=== PATIENT | male | born 1945 | race Two or more races ===

== ENCOUNTER 2017-09-11 09:55 | Day surgery (SDC) | payer MEDICARE, OTHER ==
[~2017-09-11 09:55] MED LIST: AMOCLA500 PO; Bactrim Ds Tab1 EACH PO; CAPT25 PO; CIPR500 PO; GLIP5 PO; HYDMOR2 PO; HYDR1TAB94 PO; Hydrocodone-Ap1 EA23 PO; LISI20 PO; METF500 PO; METF850 PO; NAPR500 PO; OMEG1CAP30 PO; Percocet 5-3251 EACH PO; RANI150 PO
[2017-10-25] MEDS ORDERED: GABA100 PO (17:01)
[2017-10-25] MEDS ORDERED: Omeprazole20 M1 PO (17:02)
[2017-10-25] MEDS ORDERED: [UNRECOGNIZED DRUG - CODE] TOP (17:03)
[2017-10-29] MEDS ORDERED: Percocet 7.5-31 EACH PO (13:07)
[2017-12-31] MEDS ORDERED: LISI20 PO (10:36)
[2017-12-31] MEDS ORDERED: METF500 PO (10:36)
[2017-12-31] MEDS ORDERED: NAPR500 PO (10:39)
[2018-12-30] MEDS ORDERED: Zantac150 MG PO (13:33)
[2018-12-30] MEDS ORDERED: GLIP5ER (13:34)
[2018-12-30] MEDS ORDERED: Pyridium100 MG PO (13:55)
[2018-12-30] MEDS ORDERED: CEPH500 PO (13:55)
== END 2017-09-11 23:03 | disposition home or self-care (01) ==
LOC: HBO 09:55
DX: Z48.00 Encounter for change or removal of nonsurgical wound dressing (principal); E11.621 Type 2 diabetes mellitus with foot ulcer; L97.524 Non-pressure chronic ulcer of other part of left foot with necrosis of bone; I70.202 Unspecified atherosclerosis of native arteries of extremities, left leg
CPT/HCPCS: 82947; G0277

== ENCOUNTER 2017-09-12 15:58 | Day surgery (SDC) | payer MEDICARE, OTHER ==
[2017-10-25] MEDS ORDERED: GABA100 PO (17:01)
[2017-10-25] MEDS ORDERED: Omeprazole20 M1 PO (17:02)
[2017-10-25] MEDS ORDERED: [UNRECOGNIZED DRUG - CODE] TOP (17:03)
[2017-10-29] MEDS ORDERED: Percocet 7.5-31 EACH PO (13:07)
[2017-12-31] MEDS ORDERED: LISI20 PO (10:36)
[2017-12-31] MEDS ORDERED: METF500 PO (10:36)
[2017-12-31] MEDS ORDERED: NAPR500 PO (10:39)
[2018-12-30] MEDS ORDERED: Zantac150 MG PO (13:33)
[2018-12-30] MEDS ORDERED: GLIP5ER (13:34)
[2018-12-30] MEDS ORDERED: Pyridium100 MG PO (13:55)
[2018-12-30] MEDS ORDERED: CEPH500 PO (13:55)
== END 2017-09-12 22:42 | disposition home or self-care (01) ==
LOC: HBO 15:58
DX: Z48.00 Encounter for change or removal of nonsurgical wound dressing (principal); E11.621 Type 2 diabetes mellitus with foot ulcer; L97.524 Non-pressure chronic ulcer of other part of left foot with necrosis of bone; I70.202 Unspecified atherosclerosis of native arteries of extremities, left leg
CPT/HCPCS: 82947; G0277

== ENCOUNTER 2017-10-09 00:47 | Day surgery (SDC) | payer MEDICARE, OTHER ==
[2017-10-25] MEDS ORDERED: GABA100 PO (17:01)
[2017-10-25] MEDS ORDERED: Omeprazole20 M1 PO (17:02)
[2017-10-25] MEDS ORDERED: [UNRECOGNIZED DRUG - CODE] TOP (17:03)
[2017-10-29] MEDS ORDERED: Percocet 7.5-31 EACH PO (13:07)
[2017-12-31] MEDS ORDERED: LISI20 PO (10:36)
[2017-12-31] MEDS ORDERED: METF500 PO (10:36)
[2017-12-31] MEDS ORDERED: NAPR500 PO (10:39)
== END 2017-10-09 11:24 | disposition home or self-care (01) ==
LOC: ATC 00:47
DX: E11.621 Type 2 diabetes mellitus with foot ulcer (principal); E11.69 Type 2 diabetes mellitus with other specified complication; L97.524 Non-pressure chronic ulcer of other part of left foot with necrosis of bone; I70.202 Unspecified atherosclerosis of native arteries of extremities, left leg; Z89.412 Acquired absence of left great toe; I10 Essential (primary) hypertension; Z87.891 Personal history of nicotine dependence; L08.9 Local infection of the skin and subcutaneous tissue, unspecified
CPT/HCPCS: 99212

== ENCOUNTER 2017-10-11 08:00 | Day surgery (SDC) | payer MEDICARE, OTHER ==
[2017-10-25] MEDS ORDERED: GABA100 PO (17:01)
[2017-10-25] MEDS ORDERED: Omeprazole20 M1 PO (17:02)
[2017-10-25] MEDS ORDERED: [UNRECOGNIZED DRUG - CODE] TOP (17:03)
[2017-10-29] MEDS ORDERED: Percocet 7.5-31 EACH PO (13:07)
[2017-12-31] MEDS ORDERED: METF500 PO (10:36)
[2017-12-31] MEDS ORDERED: LISI20 PO (10:36)
[2017-12-31] MEDS ORDERED: NAPR500 PO (10:39)
== END 2017-10-11 14:29 | disposition home or self-care (01) ==
LOC: HBO 08:00
PROC: 5A05221 Extracorporeal Hyperbaric Oxygenation, Continuous (ICD-10-PCS; principal; 2017-10-11)
DX: Z48.00 Encounter for change or removal of nonsurgical wound dressing (principal); E11.621 Type 2 diabetes mellitus with foot ulcer; L97.524 Non-pressure chronic ulcer of other part of left foot with necrosis of bone; I70.202 Unspecified atherosclerosis of native arteries of extremities, left leg
CPT/HCPCS: 82947; G0277

== ENCOUNTER 2017-10-11 10:40 | Day surgery (SDC) | payer MEDICARE, OTHER ==
[2017-10-25] MEDS ORDERED: GABA100 PO (17:01)
[2017-10-25] MEDS ORDERED: Omeprazole20 M1 PO (17:02)
[2017-10-25] MEDS ORDERED: [UNRECOGNIZED DRUG - CODE] TOP (17:03)
[2017-10-29] MEDS ORDERED: Percocet 7.5-31 EACH PO (13:07)
[2017-12-31] MEDS ORDERED: METF500 PO (10:36)
[2017-12-31] MEDS ORDERED: LISI20 PO (10:36)
[2017-12-31] MEDS ORDERED: NAPR500 PO (10:39)
== END 2017-10-11 14:33 | disposition home or self-care (01) ==
LOC: WOUND 10:40
DX: Z48.00 Encounter for change or removal of nonsurgical wound dressing (principal); E11.621 Type 2 diabetes mellitus with foot ulcer; L97.524 Non-pressure chronic ulcer of other part of left foot with necrosis of bone; I70.202 Unspecified atherosclerosis of native arteries of extremities, left leg
CPT/HCPCS: G0463

== ENCOUNTER 2017-10-15 00:07 | Day surgery (SDC) | payer MEDICARE, OTHER ==
[2017-10-25] MEDS ORDERED: GABA100 PO (17:01)
[2017-10-25] MEDS ORDERED: Omeprazole20 M1 PO (17:02)
[2017-10-25] MEDS ORDERED: [UNRECOGNIZED DRUG - CODE] TOP (17:03)
[2017-10-29] MEDS ORDERED: Percocet 7.5-31 EACH PO (13:07)
[2017-12-31] MEDS ORDERED: METF500 PO (10:36)
[2017-12-31] MEDS ORDERED: LISI20 PO (10:36)
[2017-12-31] MEDS ORDERED: NAPR500 PO (10:39)
== END 2017-10-15 11:46 | disposition home or self-care (01) ==
LOC: HBO 00:07
DX: Z48.00 Encounter for change or removal of nonsurgical wound dressing (principal); E11.621 Type 2 diabetes mellitus with foot ulcer; L97.524 Non-pressure chronic ulcer of other part of left foot with necrosis of bone; I70.202 Unspecified atherosclerosis of native arteries of extremities, left leg
CPT/HCPCS: 82947; G0277

== ENCOUNTER 2017-10-16 08:00 | Day surgery (SDC) | payer MEDICARE, OTHER ==
[2017-10-25] MEDS ORDERED: GABA100 PO (17:01)
[2017-10-25] MEDS ORDERED: Omeprazole20 M1 PO (17:02)
[2017-10-25] MEDS ORDERED: [UNRECOGNIZED DRUG - CODE] TOP (17:03)
[2017-10-29] MEDS ORDERED: Percocet 7.5-31 EACH PO (13:07)
[2017-12-31] MEDS ORDERED: LISI20 PO (10:36)
[2017-12-31] MEDS ORDERED: METF500 PO (10:36)
[2017-12-31] MEDS ORDERED: NAPR500 PO (10:39)
== END 2017-10-16 11:58 | disposition home or self-care (01) ==
LOC: HBO 08:00
PROC: 5A05221 Extracorporeal Hyperbaric Oxygenation, Continuous (ICD-10-PCS; principal; 2017-10-16)
DX: Z48.00 Encounter for change or removal of nonsurgical wound dressing (principal); E11.621 Type 2 diabetes mellitus with foot ulcer; L97.524 Non-pressure chronic ulcer of other part of left foot with necrosis of bone; I70.202 Unspecified atherosclerosis of native arteries of extremities, left leg
CPT/HCPCS: 82947; G0277

== ENCOUNTER 2017-10-17 00:24 | Day surgery (SDC) | payer MEDICARE, OTHER ==
[2017-10-25] MEDS ORDERED: GABA100 PO (17:01)
[2017-10-25] MEDS ORDERED: Omeprazole20 M1 PO (17:02)
[2017-10-25] MEDS ORDERED: [UNRECOGNIZED DRUG - CODE] TOP (17:03)
[2017-10-29] MEDS ORDERED: Percocet 7.5-31 EACH PO (13:07)
[2017-12-31] MEDS ORDERED: LISI20 PO (10:36)
[2017-12-31] MEDS ORDERED: METF500 PO (10:36)
[2017-12-31] MEDS ORDERED: NAPR500 PO (10:39)
== END 2017-10-17 23:14 | disposition home or self-care (01) ==
LOC: HBO 00:24
PROC: 5A05221 Extracorporeal Hyperbaric Oxygenation, Continuous (ICD-10-PCS; principal; 2017-10-17)
DX: Z48.00 Encounter for change or removal of nonsurgical wound dressing (principal); E11.621 Type 2 diabetes mellitus with foot ulcer; L97.524 Non-pressure chronic ulcer of other part of left foot with necrosis of bone; I70.202 Unspecified atherosclerosis of native arteries of extremities, left leg
CPT/HCPCS: 82947; G0277

== ENCOUNTER 2017-10-17 11:10 | Day surgery (SDC) | payer MEDICARE, OTHER ==
[2017-10-25] MEDS ORDERED: GABA100 PO (17:01)
[2017-10-25] MEDS ORDERED: Omeprazole20 M1 PO (17:02)
[2017-10-25] MEDS ORDERED: [UNRECOGNIZED DRUG - CODE] TOP (17:03)
[2017-10-29] MEDS ORDERED: Percocet 7.5-31 EACH PO (13:07)
[2017-12-31] MEDS ORDERED: LISI20 PO (10:36)
[2017-12-31] MEDS ORDERED: METF500 PO (10:36)
[2017-12-31] MEDS ORDERED: NAPR500 PO (10:39)
== END 2017-10-17 23:14 | disposition home or self-care (01) ==
LOC: WOUND 11:10
PROC: 2W1VX6Z Compression of Left Toe using Pressure Dressing (ICD-10-PCS; principal; 2017-10-17)
DX: Z48.00 Encounter for change or removal of nonsurgical wound dressing (principal); E11.621 Type 2 diabetes mellitus with foot ulcer; L97.524 Non-pressure chronic ulcer of other part of left foot with necrosis of bone; I70.202 Unspecified atherosclerosis of native arteries of extremities, left leg
CPT/HCPCS: G0463

== ENCOUNTER 2017-10-21 08:00 | Day surgery (SDC) | payer MEDICARE, OTHER ==
[2017-10-25] MEDS ORDERED: GABA100 PO (17:01)
[2017-10-25] MEDS ORDERED: Omeprazole20 M1 PO (17:02)
[2017-10-25] MEDS ORDERED: [UNRECOGNIZED DRUG - CODE] TOP (17:03)
[2017-10-29] MEDS ORDERED: Percocet 7.5-31 EACH PO (13:07)
[2017-12-31] MEDS ORDERED: LISI20 PO (10:36)
[2017-12-31] MEDS ORDERED: METF500 PO (10:36)
[2017-12-31] MEDS ORDERED: NAPR500 PO (10:39)
== END 2017-10-21 11:06 | disposition home or self-care (01) ==
LOC: WOUND 08:00 → HBO 09:33 → WOUND 11:06
PROC: 2W1VX6Z Compression of Left Toe using Pressure Dressing (ICD-10-PCS; principal; 2017-10-21)
DX: Z48.00 Encounter for change or removal of nonsurgical wound dressing (principal); E11.621 Type 2 diabetes mellitus with foot ulcer; L97.524 Non-pressure chronic ulcer of other part of left foot with necrosis of bone; I70.202 Unspecified atherosclerosis of native arteries of extremities, left leg

== ENCOUNTER 2017-10-23 00:22 | Day surgery (SDC) | payer MEDICARE, OTHER ==
[2017-10-25] MEDS ORDERED: GABA100 PO (17:01)
[2017-10-25] MEDS ORDERED: Omeprazole20 M1 PO (17:02)
[2017-10-25] MEDS ORDERED: [UNRECOGNIZED DRUG - CODE] TOP (17:03)
[2017-10-29] MEDS ORDERED: Percocet 7.5-31 EACH PO (13:07)
[2017-12-31] MEDS ORDERED: METF500 PO (10:36)
[2017-12-31] MEDS ORDERED: LISI20 PO (10:36)
[2017-12-31] MEDS ORDERED: NAPR500 PO (10:39)
== END 2017-10-23 09:56 | disposition home or self-care (01) ==
LOC: ATC 00:22
DX: E11.621 Type 2 diabetes mellitus with foot ulcer (principal); L97.524 Non-pressure chronic ulcer of other part of left foot with necrosis of bone; I70.202 Unspecified atherosclerosis of native arteries of extremities, left leg
CPT/HCPCS: 99211

== ENCOUNTER 2017-10-24 11:15 | Day surgery (SDC) | payer MEDICARE, OTHER ==
[2017-10-25] MEDS ORDERED: GABA100 PO (17:01)
[2017-10-25] MEDS ORDERED: Omeprazole20 M1 PO (17:02)
[2017-10-25] MEDS ORDERED: [UNRECOGNIZED DRUG - CODE] TOP (17:03)
[2017-10-29] MEDS ORDERED: Percocet 7.5-31 EACH PO (13:07)
[2017-12-31] MEDS ORDERED: LISI20 PO (10:36)
[2017-12-31] MEDS ORDERED: METF500 PO (10:36)
[2017-12-31] MEDS ORDERED: NAPR500 PO (10:39)
== END 2017-10-24 22:49 | disposition home or self-care (01) ==
LOC: WOUND 11:15
DX: Z48.00 Encounter for change or removal of nonsurgical wound dressing (principal); E11.621 Type 2 diabetes mellitus with foot ulcer; L97.524 Non-pressure chronic ulcer of other part of left foot with necrosis of bone; I70.202 Unspecified atherosclerosis of native arteries of extremities, left leg; Z89.412 Acquired absence of left great toe; I10 Essential (primary) hypertension; Z87.891 Personal history of nicotine dependence
CPT/HCPCS: G0463

== ENCOUNTER 2017-10-24 17:01 | Inpatient (IN) | payer MEDICARE, OTHER ==
[~2017-10-24] VITALS: Ht 157.5 cm; Wt 180.0 kg
[2017-10-24 17:32] LABS: BASOPHILS ABSOLUTE AUTO 0.02 K/mm3 (0.00-0.23); BASOPHILS PERCENT AUTO 0 % (0-2); EOSINOPHILS ABSOLUTE AUTO 0.23 K/mm3 (0.00-0.68); EOSINOPHILS PERCENT AUTO 3 % (0-6); Hemoglobin 14.3 g/dL (13.5-17.5); IMMATURE GRAN ABSOLUTE AUTO 0.02 K/mm3 (0.00-0.10); IMMATURE GRAN PERCENT AUTO 0 % (0-1); LYMPHOCYTES ABSOLUTE AUTO 1.65 K/mm3 (0.84-5.20); LYMPHOCYTES PERCENT AUTO 24 % (21-46); MONOCYTES ABSOLUTE AUTO 0.47 K/mm3 (0.16-1.47); MONOCYTES PERCENT AUTO 7 % (4-13); Mean Corpuscular HGB 30.3 pg (26.0-34.0); Mean Corpuscular HGB Conc 34.9 g/dL (31.5-36.5); Mean Corpuscular Volume 87 fL (80-100); Mean Platelet Volume 9.8 fL (9.1-12.4); NEUTROPHILS ABSOLUTE AUTO 4.45 K/mm3 (1.96-9.15); NEUTROPHILS PERCENT AUTO 65 % (41-73); Platelet Count 157 K/mm3 (150-400); RDW Coefficient Variation 12.4 % (11.7-14.2); RDW Standard Deviation 39.8 fL (35.1-46.3); Red Blood Cell Count 4.72 M/mm3 (4.30-5.90); White Blood Cell Count 6.84 K/mm3 (4.00-11.30)
[2017-10-24 17:53] LABS: Alanine Aminotransfer (ALT/SGP 27 U/L (12-78); Albumin, Blood 3.7 g/dL (3.4-5.0); Albumin/Globulin Ratio 0.9 (0.8-1.8); Alk Phos 131 U/L (50-136); Anion Gap 7 mmol/L (6-16); Aspartate Aminotrans (AST/SGOT 16 U/L (12-37); Bilirubin, Total 0.4 mg/dL (0.1-1.0); Blood Urea Nitrogen 16 mg/dL (8-24); Bun/Creatinine Ratio 20.7 (12.0-20.0); CO2, Blood 28 mmol/L (21-32); Calcium, Blood 9.2 mg/dL (8.5-10.1); Chloride, Blood 101 mmol/L (98-108); Creatinine, Blood 0.77 mg/dL (0.60-1.20); Glomerular Filtration Rate >60 (60-); Glucose, Blood 163 mg/dL (70-99); Potassium, Blood 4.1 mmol/L (3.5-5.5); Sodium, Blood 136 mmol/L (136-145); Total Protein, Blood 7.7 g/dL (6.4-8.2)
[2017-10-25] MEDS ORDERED: GABA100 PO ×2 (17:01)
[2017-10-25] MEDS ORDERED: Omeprazole20 M1 PO ×2 (17:02)
[2017-10-25] MEDS ORDERED: [UNRECOGNIZED DRUG - CODE] TOP ×2 (17:03)
[2017-10-26 05:02] LABS: BASOPHILS ABSOLUTE AUTO 0.03 K/mm3 (0.00-0.23); BASOPHILS PERCENT AUTO 1 % (0-2); EOSINOPHILS ABSOLUTE AUTO 0.25 K/mm3 (0.00-0.68); EOSINOPHILS PERCENT AUTO 5 % (0-6); Hematocrit 35.7 % (37.0-53.0); Hemoglobin 12.4 g/dL (13.5-17.5); IMMATURE GRAN ABSOLUTE AUTO 0.01 K/mm3 (0.00-0.10); IMMATURE GRAN PERCENT AUTO 0 % (0-1); LYMPHOCYTES PERCENT AUTO 40 % (21-46); MONOCYTES ABSOLUTE AUTO 0.47 K/mm3 (0.16-1.47); MONOCYTES PERCENT AUTO 9 % (4-13); Mean Corpuscular HGB 29.9 pg (26.0-34.0); Mean Corpuscular HGB Conc 34.7 g/dL (31.5-36.5); Mean Corpuscular Volume 86 fL (80-100); Mean Platelet Volume 9.8 fL (9.1-12.4); NEUTROPHILS PERCENT AUTO 46 % (41-73); Platelet Count 155 K/mm3 (150-400); RDW Coefficient Variation 12.4 % (11.7-14.2); RDW Standard Deviation 39.3 fL (35.1-46.3); Red Blood Cell Count 4.15 M/mm3 (4.30-5.90); White Blood Cell Count 5.26 K/mm3 (4.00-11.30)
[2017-10-26 05:25] LABS: Anion Gap 7 mmol/L (6-16); Blood Urea Nitrogen 17 mg/dL (8-24); Bun/Creatinine Ratio 19.5 (12.0-20.0); CO2, Blood 28 mmol/L (21-32); Calcium, Blood 8.6 mg/dL (8.5-10.1); Chloride, Blood 103 mmol/L (98-108); Creatinine, Blood 0.87 mg/dL (0.60-1.20); Glomerular Filtration Rate >60 (60-); Glucose, Blood 120 mg/dL (70-99); Magnesium, Blood 1.9 mg/dL (1.6-2.4); Sodium, Blood 138 mmol/L (136-145)
[2017-10-28 05:18] LABS: BASOPHILS ABSOLUTE AUTO 0.03 K/mm3 (0.00-0.23); BASOPHILS PERCENT AUTO 1 % (0-2); EOSINOPHILS ABSOLUTE AUTO 0.24 K/mm3 (0.00-0.68); EOSINOPHILS PERCENT AUTO 4 % (0-6); Hematocrit 37.2 % (37.0-53.0); IMMATURE GRAN ABSOLUTE AUTO 0.01 K/mm3 (0.00-0.10); IMMATURE GRAN PERCENT AUTO 0 % (0-1); LYMPHOCYTES PERCENT AUTO 34 % (21-46); MONOCYTES ABSOLUTE AUTO 0.72 K/mm3 (0.16-1.47); MONOCYTES PERCENT AUTO 13 % (4-13); Mean Corpuscular HGB 30.1 pg (26.0-34.0); Mean Corpuscular HGB Conc 34.9 g/dL (31.5-36.5); Mean Corpuscular Volume 86 fL (80-100); NEUTROPHILS ABSOLUTE AUTO 2.77 K/mm3 (1.96-9.15); NEUTROPHILS PERCENT AUTO 49 % (41-73); Platelet Count 159 K/mm3 (150-400); RDW Coefficient Variation 12.4 % (11.7-14.2); RDW Standard Deviation 39.4 fL (35.1-46.3); Red Blood Cell Count 4.32 M/mm3 (4.30-5.90); White Blood Cell Count 5.67 K/mm3 (4.00-11.30)
[2017-10-28 05:56] LABS: Anion Gap 9 mmol/L (6-16); Blood Urea Nitrogen 21 mg/dL (8-24); Bun/Creatinine Ratio 22.8 (12.0-20.0); CO2, Blood 27 mmol/L (21-32); Calcium, Blood 8.9 mg/dL (8.5-10.1); Chloride, Blood 101 mmol/L (98-108); Creatinine, Blood 0.92 mg/dL (0.60-1.20); Glomerular Filtration Rate >60 (60-); Glucose, Blood 125 mg/dL (70-99); Sodium, Blood 137 mmol/L (136-145)
[2017-10-29] MEDS ORDERED: Percocet 7.5-31 EACH PO ×2 (13:07)
[2017-12-31] MEDS ORDERED: METF500 PO (10:36)
[2017-12-31] MEDS ORDERED: LISI20 PO (10:36)
[2017-12-31] MEDS ORDERED: NAPR500 PO (10:39)
== END 2017-10-29 14:34 | disposition home or self-care (01) | DRG 617 ==
LOC: ER 17:01 → MEDS 21:12 → ERHOLD 21:12 → MEDS 10-25 12:47 → ENPENDDIS 10-29 09:27 → MEDS 10-29 14:34
PROVIDERS: Emergency Medicine; Hospitalist; Internal Medicine; Podiatrist Foot & Ankle Surgery
PROC: 0Y6N0Z9 Detachment at Left Foot, Partial 1st Ray, Open Approach (ICD-10-PCS; principal; 2017-10-28 12:00)
PROC: 0JBR0ZZ Excision of Left Foot Subcutaneous Tissue and Fascia, Open Approach (ICD-10-PCS; 2017-10-28 12:00)
DX: E11.69 Type 2 diabetes mellitus with other specified complication (principal); M86.9 Osteomyelitis, unspecified; L03.116 Cellulitis of left lower limb; T87.89 Other complications of amputation stump; Y83.5 Amputation of limb(s) as the cause of abnormal reaction of the patient, or of later complication, without mention of misadventure at the time of the procedure; K21.9 Gastro-esophageal reflux disease without esophagitis; Z89.412 Acquired absence of left great toe; Z85.46 Personal history of malignant neoplasm of prostate; Z87.891 Personal history of nicotine dependence; Z79.01 Long term (current) use of anticoagulants; Z79.891 Long term (current) use of opiate analgesic; I10 Essential (primary) hypertension; Z79.84 Long term (current) use of oral hypoglycemic drugs
CPT/HCPCS: 36415; 73630; 73720; 80048; 80053; 82947; 83605; 83735; 85025; 85651; 86140; 87040; 87070; 87071; 87075; 87076; 87077; 87147; 87185; 87186; 87205; 88305; 88311; 93005; 93010; 96365; 96366; 96375; 99285; A9577; C1751; C9113; J0171; J1170; J1650; J2185; J2250; J2370; J2405; J2543; J3010; J7030; J7120

== ENCOUNTER 2017-10-30 00:26 | Day surgery (SDC) | payer MEDICARE, OTHER ==
[~2017-10-30 00:26] MED LIST changes: +GABA100 PO; +Omeprazole20 M1 PO; +Percocet 7.5-31 EACH PO; +[UNRECOGNIZED DRUG - CODE] TOP
[2017-12-31] MEDS ORDERED: METF500 PO (10:36)
[2017-12-31] MEDS ORDERED: LISI20 PO (10:36)
[2017-12-31] MEDS ORDERED: NAPR500 PO (10:39)
== END 2017-10-30 22:57 | disposition home or self-care (01) ==
LOC: ATC 00:26
DX: E11.69 Type 2 diabetes mellitus with other specified complication (principal); E11.621 Type 2 diabetes mellitus with foot ulcer; L08.9 Local infection of the skin and subcutaneous tissue, unspecified; Z89.412 Acquired absence of left great toe; I10 Essential (primary) hypertension; K21.9 Gastro-esophageal reflux disease without esophagitis; Z87.891 Personal history of nicotine dependence; L97.524 Non-pressure chronic ulcer of other part of left foot with necrosis of bone; I70.202 Unspecified atherosclerosis of native arteries of extremities, left leg
CPT/HCPCS: 96374; J1335

== ENCOUNTER 2017-10-30 08:44 | Day surgery (SDC) | payer MEDICARE, OTHER ==
[2017-12-31] MEDS ORDERED: LISI20 PO (10:36)
[2017-12-31] MEDS ORDERED: METF500 PO (10:36)
[2017-12-31] MEDS ORDERED: NAPR500 PO (10:39)
== END 2017-10-30 22:57 | disposition home or self-care (01) ==
LOC: WOUND 08:44
DX: Z48.00 Encounter for change or removal of nonsurgical wound dressing (principal); E11.69 Type 2 diabetes mellitus with other specified complication; E11.621 Type 2 diabetes mellitus with foot ulcer; I10 Essential (primary) hypertension; L08.9 Local infection of the skin and subcutaneous tissue, unspecified; Z89.412 Acquired absence of left great toe; K21.9 Gastro-esophageal reflux disease without esophagitis; Z87.891 Personal history of nicotine dependence
CPT/HCPCS: G0463

== ENCOUNTER 2017-10-31 08:40 | Day surgery (SDC) | payer MEDICARE, OTHER ==
[2017-12-31] MEDS ORDERED: METF500 PO (10:36)
[2017-12-31] MEDS ORDERED: LISI20 PO (10:36)
[2017-12-31] MEDS ORDERED: NAPR500 PO (10:39)
== END 2017-10-31 10:00 | disposition home or self-care (01) ==
LOC: ATC 08:40
DX: E11.69 Type 2 diabetes mellitus with other specified complication (principal); L08.9 Local infection of the skin and subcutaneous tissue, unspecified; E11.621 Type 2 diabetes mellitus with foot ulcer; I10 Essential (primary) hypertension; L97.524 Non-pressure chronic ulcer of other part of left foot with necrosis of bone; M86.9 Osteomyelitis, unspecified
CPT/HCPCS: 96374; J1335

== ENCOUNTER 2017-11-01 00:27 | Day surgery (SDC) | payer MEDICARE, OTHER ==
[2017-11-02] MEDS ORDERED: Invanz1 GM IV (09:26)
[2017-12-31] MEDS ORDERED: METF500 PO (10:36)
[2017-12-31] MEDS ORDERED: LISI20 PO (10:36)
[2017-12-31] MEDS ORDERED: NAPR500 PO (10:39)
== END 2017-11-01 11:28 | disposition home or self-care (01) ==
LOC: ATC 00:27
DX: E11.621 Type 2 diabetes mellitus with foot ulcer (principal); L97.524 Non-pressure chronic ulcer of other part of left foot with necrosis of bone; I70.202 Unspecified atherosclerosis of native arteries of extremities, left leg; Z95.828 Presence of other vascular implants and grafts
CPT/HCPCS: 96374; J1335

== ENCOUNTER 2017-11-01 12:00 | Day surgery (SDC) | payer MEDICARE, OTHER ==
[2017-11-02] MEDS ORDERED: Invanz1 GM IV (09:26)
[2017-12-31] MEDS ORDERED: METF500 PO (10:36)
[2017-12-31] MEDS ORDERED: LISI20 PO (10:36)
[2017-12-31] MEDS ORDERED: NAPR500 PO (10:39)
== END 2017-11-01 12:33 | disposition home or self-care (01) ==
LOC: WOUND 12:00
DX: Z48.00 Encounter for change or removal of nonsurgical wound dressing (principal); E11.621 Type 2 diabetes mellitus with foot ulcer; L97.429 Non-pressure chronic ulcer of left heel and midfoot with unspecified severity; Z89.412 Acquired absence of left great toe
CPT/HCPCS: G0463

== ENCOUNTER 2017-11-02 00:56 | Day surgery (SDC) | payer MEDICARE, OTHER ==
[2017-11-02] MEDS ORDERED: Invanz1 GM IV (09:26)
[2017-12-31] MEDS ORDERED: METF500 PO (10:36)
[2017-12-31] MEDS ORDERED: LISI20 PO (10:36)
[2017-12-31] MEDS ORDERED: NAPR500 PO (10:39)
== END 2017-11-02 09:35 | disposition home or self-care (01) ==
LOC: ATC 00:56
DX: E11.69 Type 2 diabetes mellitus with other specified complication (principal); E11.621 Type 2 diabetes mellitus with foot ulcer; L97.524 Non-pressure chronic ulcer of other part of left foot with necrosis of bone; M86.9 Osteomyelitis, unspecified; I70.202 Unspecified atherosclerosis of native arteries of extremities, left leg; Z89.412 Acquired absence of left great toe; I10 Essential (primary) hypertension; K21.9 Gastro-esophageal reflux disease without esophagitis; Z87.891 Personal history of nicotine dependence; L08.9 Local infection of the skin and subcutaneous tissue, unspecified
CPT/HCPCS: 96374; J1335

== ENCOUNTER 2017-11-03 00:16 | Day surgery (SDC) | payer MEDICARE, OTHER ==
[~2017-11-03 00:16] MED LIST changes: +Invanz1 GM IV
[2017-12-31] MEDS ORDERED: LISI20 PO (10:36)
[2017-12-31] MEDS ORDERED: METF500 PO (10:36)
[2017-12-31] MEDS ORDERED: NAPR500 PO (10:39)
== END 2017-11-03 09:48 | disposition home or self-care (01) ==
LOC: ATC 00:16
DX: E11.69 Type 2 diabetes mellitus with other specified complication (principal); E11.621 Type 2 diabetes mellitus with foot ulcer; M86.9 Osteomyelitis, unspecified; L08.9 Local infection of the skin and subcutaneous tissue, unspecified; I10 Essential (primary) hypertension; L97.524 Non-pressure chronic ulcer of other part of left foot with necrosis of bone; I70.202 Unspecified atherosclerosis of native arteries of extremities, left leg
CPT/HCPCS: 96374; J1335

== ENCOUNTER 2017-11-04 09:36 | Day surgery (SDC) | payer MEDICARE, OTHER ==
[2017-12-31] MEDS ORDERED: LISI20 PO (10:36)
[2017-12-31] MEDS ORDERED: METF500 PO (10:36)
[2017-12-31] MEDS ORDERED: NAPR500 PO (10:39)
== END 2017-11-04 09:59 | disposition home or self-care (01) ==
LOC: ATC 09:36
DX: E11.69 Type 2 diabetes mellitus with other specified complication (principal); L08.9 Local infection of the skin and subcutaneous tissue, unspecified; E11.621 Type 2 diabetes mellitus with foot ulcer; L97.524 Non-pressure chronic ulcer of other part of left foot with necrosis of bone; I70.202 Unspecified atherosclerosis of native arteries of extremities, left leg; M86.9 Osteomyelitis, unspecified; Z89.412 Acquired absence of left great toe; Z87.891 Personal history of nicotine dependence
CPT/HCPCS: 96365; J1335

== ENCOUNTER 2017-11-04 10:06 | Day surgery (SDC) | payer MEDICARE, OTHER ==
[2017-12-31] MEDS ORDERED: METF500 PO (10:36)
[2017-12-31] MEDS ORDERED: LISI20 PO (10:36)
[2017-12-31] MEDS ORDERED: NAPR500 PO (10:39)
== END 2017-11-04 23:06 | disposition home or self-care (01) ==
LOC: WOUND 10:06
DX: Z48.00 Encounter for change or removal of nonsurgical wound dressing (principal); E11.69 Type 2 diabetes mellitus with other specified complication; E11.621 Type 2 diabetes mellitus with foot ulcer; L97.524 Non-pressure chronic ulcer of other part of left foot with necrosis of bone; I70.202 Unspecified atherosclerosis of native arteries of extremities, left leg; L08.9 Local infection of the skin and subcutaneous tissue, unspecified
CPT/HCPCS: G0463

== ENCOUNTER 2017-11-05 00:29 | Day surgery (SDC) | payer MEDICARE, OTHER ==
[2017-12-31] MEDS ORDERED: LISI20 PO (10:36)
[2017-12-31] MEDS ORDERED: METF500 PO (10:36)
[2017-12-31] MEDS ORDERED: NAPR500 PO (10:39)
== END 2017-11-05 09:47 | disposition home or self-care (01) ==
LOC: ATC 00:29
DX: E11.69 Type 2 diabetes mellitus with other specified complication (principal); E11.621 Type 2 diabetes mellitus with foot ulcer; L08.9 Local infection of the skin and subcutaneous tissue, unspecified; L97.524 Non-pressure chronic ulcer of other part of left foot with necrosis of bone; I70.202 Unspecified atherosclerosis of native arteries of extremities, left leg; Z89.412 Acquired absence of left great toe; I10 Essential (primary) hypertension; K21.9 Gastro-esophageal reflux disease without esophagitis; Z87.891 Personal history of nicotine dependence; M86.9 Osteomyelitis, unspecified
CPT/HCPCS: 96374; J1335

== ENCOUNTER 2017-11-05 11:00 | Day surgery (SDC) | payer MEDICARE, OTHER ==
[2017-12-31] MEDS ORDERED: METF500 PO (10:36)
[2017-12-31] MEDS ORDERED: LISI20 PO (10:36)
[2017-12-31] MEDS ORDERED: NAPR500 PO (10:39)
== END 2017-11-05 12:55 | disposition home or self-care (01) ==
LOC: HBO → WOUND 11:00
DX: Z48.00 Encounter for change or removal of nonsurgical wound dressing (principal); E11.621 Type 2 diabetes mellitus with foot ulcer; L97.429 Non-pressure chronic ulcer of left heel and midfoot with unspecified severity; T81.89XD Other complications of procedures, not elsewhere classified, subsequent encounter; Z89.412 Acquired absence of left great toe
CPT/HCPCS: G0463

== ENCOUNTER 2017-11-06 00:40 | Day surgery (SDC) | payer MEDICARE, OTHER ==
[2017-12-31] MEDS ORDERED: LISI20 PO (10:36)
[2017-12-31] MEDS ORDERED: METF500 PO (10:36)
[2017-12-31] MEDS ORDERED: NAPR500 PO (10:39)
== END 2017-11-06 09:30 | disposition home or self-care (01) ==
LOC: ATC 00:40
DX: E11.621 Type 2 diabetes mellitus with foot ulcer (principal); L97.524 Non-pressure chronic ulcer of other part of left foot with necrosis of bone; I70.202 Unspecified atherosclerosis of native arteries of extremities, left leg
CPT/HCPCS: 96374; J1335

== ENCOUNTER 2017-11-07 00:33 | Day surgery (SDC) | payer MEDICARE, OTHER ==
[2017-12-31] MEDS ORDERED: METF500 PO (10:36)
[2017-12-31] MEDS ORDERED: LISI20 PO (10:36)
[2017-12-31] MEDS ORDERED: NAPR500 PO (10:39)
== END 2017-11-07 09:38 | disposition home or self-care (01) ==
LOC: ATC 00:33
DX: E11.69 Type 2 diabetes mellitus with other specified complication (principal); E11.621 Type 2 diabetes mellitus with foot ulcer; L08.9 Local infection of the skin and subcutaneous tissue, unspecified; I10 Essential (primary) hypertension; L97.524 Non-pressure chronic ulcer of other part of left foot with necrosis of bone; I70.202 Unspecified atherosclerosis of native arteries of extremities, left leg
CPT/HCPCS: 96374; J1335

== ENCOUNTER 2017-11-08 00:57 | Day surgery (SDC) | payer MEDICARE, OTHER ==
[2017-12-31] MEDS ORDERED: METF500 PO (10:36)
[2017-12-31] MEDS ORDERED: LISI20 PO (10:36)
[2017-12-31] MEDS ORDERED: NAPR500 PO (10:39)
== END 2017-11-08 10:13 | disposition home or self-care (01) ==
LOC: ATC 00:57
DX: E11.69 Type 2 diabetes mellitus with other specified complication (principal); E11.621 Type 2 diabetes mellitus with foot ulcer; L97.524 Non-pressure chronic ulcer of other part of left foot with necrosis of bone; L08.9 Local infection of the skin and subcutaneous tissue, unspecified; M86.9 Osteomyelitis, unspecified; I70.202 Unspecified atherosclerosis of native arteries of extremities, left leg
CPT/HCPCS: 96374; J1335

== ENCOUNTER 2017-11-09 00:30 | Day surgery (SDC) | payer MEDICARE, OTHER ==
[2017-12-31] MEDS ORDERED: LISI20 PO (10:36)
[2017-12-31] MEDS ORDERED: METF500 PO (10:36)
[2017-12-31] MEDS ORDERED: NAPR500 PO (10:39)
== END 2017-11-09 10:10 | disposition home or self-care (01) ==
LOC: ATC 00:30
DX: E11.69 Type 2 diabetes mellitus with other specified complication (principal); E11.621 Type 2 diabetes mellitus with foot ulcer; L97.524 Non-pressure chronic ulcer of other part of left foot with necrosis of bone; I70.202 Unspecified atherosclerosis of native arteries of extremities, left leg; L08.9 Local infection of the skin and subcutaneous tissue, unspecified; M86.9 Osteomyelitis, unspecified; I10 Essential (primary) hypertension; K21.9 Gastro-esophageal reflux disease without esophagitis; Z87.891 Personal history of nicotine dependence
CPT/HCPCS: 96374; J1335

== ENCOUNTER 2017-11-10 00:15 | Day surgery (SDC) | payer MEDICARE, OTHER ==
[2017-12-31] MEDS ORDERED: LISI20 PO (10:36)
[2017-12-31] MEDS ORDERED: METF500 PO (10:36)
[2017-12-31] MEDS ORDERED: NAPR500 PO (10:39)
== END 2017-11-10 10:35 | disposition home or self-care (01) ==
LOC: ATC 00:15
DX: E11.69 Type 2 diabetes mellitus with other specified complication (principal); E11.621 Type 2 diabetes mellitus with foot ulcer; L97.524 Non-pressure chronic ulcer of other part of left foot with necrosis of bone; I70.202 Unspecified atherosclerosis of native arteries of extremities, left leg; L08.9 Local infection of the skin and subcutaneous tissue, unspecified; M86.9 Osteomyelitis, unspecified; I10 Essential (primary) hypertension; K21.9 Gastro-esophageal reflux disease without esophagitis; Z87.891 Personal history of nicotine dependence
CPT/HCPCS: 96374; J1335

== ENCOUNTER 2017-11-11 00:12 | Day surgery (SDC) | payer MEDICARE, OTHER ==
[2017-12-31] MEDS ORDERED: LISI20 PO (10:36)
[2017-12-31] MEDS ORDERED: METF500 PO (10:36)
[2017-12-31] MEDS ORDERED: NAPR500 PO (10:39)
== END 2017-11-11 09:50 | disposition home or self-care (01) ==
LOC: ATC 00:12
DX: L08.9 Local infection of the skin and subcutaneous tissue, unspecified (principal); E11.621 Type 2 diabetes mellitus with foot ulcer; L97.524 Non-pressure chronic ulcer of other part of left foot with necrosis of bone; I70.202 Unspecified atherosclerosis of native arteries of extremities, left leg
CPT/HCPCS: 96374; G0463; J1335

== ENCOUNTER 2017-11-12 00:10 | Day surgery (SDC) | payer MEDICARE, OTHER ==
[2017-12-31] MEDS ORDERED: LISI20 PO (10:36)
[2017-12-31] MEDS ORDERED: METF500 PO (10:36)
[2017-12-31] MEDS ORDERED: NAPR500 PO (10:39)
== END 2017-11-12 09:23 | disposition home or self-care (01) ==
LOC: ATC 00:10
DX: E11.69 Type 2 diabetes mellitus with other specified complication (principal); E11.621 Type 2 diabetes mellitus with foot ulcer; L97.524 Non-pressure chronic ulcer of other part of left foot with necrosis of bone; I70.202 Unspecified atherosclerosis of native arteries of extremities, left leg; L08.9 Local infection of the skin and subcutaneous tissue, unspecified; M86.9 Osteomyelitis, unspecified; Z89.412 Acquired absence of left great toe; Z87.891 Personal history of nicotine dependence; E11.9 Type 2 diabetes mellitus without complications; K21.9 Gastro-esophageal reflux disease without esophagitis
CPT/HCPCS: 96374; J1335

== ENCOUNTER 2017-11-14 00:56 | Day surgery (SDC) | payer MEDICARE, OTHER ==
[2017-12-31] MEDS ORDERED: LISI20 PO (10:36)
[2017-12-31] MEDS ORDERED: METF500 PO (10:36)
[2017-12-31] MEDS ORDERED: NAPR500 PO (10:39)
== END 2017-11-14 22:45 | disposition home or self-care (01) ==
LOC: WOUND 00:56
DX: Z48.00 Encounter for change or removal of nonsurgical wound dressing (principal); E11.621 Type 2 diabetes mellitus with foot ulcer; L97.524 Non-pressure chronic ulcer of other part of left foot with necrosis of bone; Z89.412 Acquired absence of left great toe
CPT/HCPCS: G0463

== ENCOUNTER 2018-01-16 10:54 | Day surgery (SDC) | payer MEDICARE, OTHER ==
[~2018-01-16] VITALS: Ht 157.5 cm; Wt 84.4 kg
[2018-01-17 04:49] LABS: BASOPHILS ABSOLUTE AUTO 0.03 K/mm3 (0.00-0.23); BASOPHILS PERCENT AUTO 0 % (0-2); EOSINOPHILS ABSOLUTE AUTO 0.11 K/mm3 (0.00-0.68); EOSINOPHILS PERCENT AUTO 1 % (0-6); Hematocrit 35.3 % (37.0-53.0); Hemoglobin 12.2 g/dL (13.5-17.5); IMMATURE GRAN ABSOLUTE AUTO 0.07 K/mm3 (0.00-0.10); IMMATURE GRAN PERCENT AUTO 1 % (0-1); LYMPHOCYTES ABSOLUTE AUTO 1.56 K/mm3 (0.84-5.20); LYMPHOCYTES PERCENT AUTO 12 % (21-46); MONOCYTES ABSOLUTE AUTO 1.28 K/mm3 (0.16-1.47); MONOCYTES PERCENT AUTO 10 % (4-13); Mean Corpuscular HGB 30.5 pg (26.0-34.0); Mean Corpuscular HGB Conc 34.6 g/dL (31.5-36.5); Mean Corpuscular Volume 88 fL (80-100); Mean Platelet Volume 10.4 fL (9.1-12.4); NEUTROPHILS ABSOLUTE AUTO 9.68 K/mm3 (1.96-9.15); NEUTROPHILS PERCENT AUTO 76 % (41-73); Platelet Count 150 K/mm3 (150-400); RDW Coefficient Variation 13.9 % (11.7-14.2); RDW Standard Deviation 45.3 fL (35.1-46.3); White Blood Cell Count 12.73 K/mm3 (4.00-11.30)
[2018-01-17 05:18] LABS: Anion Gap 8 mmol/L (6-16); Blood Urea Nitrogen 29 mg/dL (8-24); Bun/Creatinine Ratio 28.4 (12.0-20.0); CO2, Blood 25 mmol/L (21-32); Chloride, Blood 101 mmol/L (98-108); Creatinine, Blood 1.02 mg/dL (0.60-1.20); Glomerular Filtration Rate >60 (60-); Glucose, Blood 152 mg/dL (70-99); Sodium, Blood 134 mmol/L (136-145)
[2018-01-17] MEDS ORDERED: Percocet 5-3251 EACH PO (14:05)
[2018-01-17] MEDS ORDERED: ASPI325EC PO (14:05)
== END 2018-01-17 14:15 | disposition home or self-care (01) ==
LOC: ORSCMMR 10:54 → ORD 12:45 → ORSCMMR 12:45 → SURS 15:56 → ORSCMMR 01-17 14:15
PROVIDERS: Orthopaedic Surgery
PROC: 0SRC0J9 Replacement of Right Knee Joint with Synthetic Substitute, Cemented, Open Approach (ICD-10-PCS; principal; 2018-01-16 12:45)
DX: M17.11 Unilateral primary osteoarthritis, right knee (principal); I10 Essential (primary) hypertension; E11.9 Type 2 diabetes mellitus without complications; K21.9 Gastro-esophageal reflux disease without esophagitis; Z79.899 Other long term (current) drug therapy; E66.9 Obesity, unspecified; Z68.34 Body mass index [BMI] 34.0-34.9, adult
CPT/HCPCS: 36415; 73560-RT; 80048; 82947; 85025; 86850; 86900; 86901; 88300; 97110; 97116; 97162; 97530; C1713; C1776; G8978; G8979; J0171; J0690; J0735; J1170; J1885; J2250; J2405; J2795; J3010; J7120

== ENCOUNTER → 2018-11-21 | Outpatient (CLI) | payer MEDICARE, OTHER ==
[~2018-11-21] MED LIST changes: +ASPI325EC PO
[2018-11-21 09:13] LABS: BASOPHILS ABSOLUTE AUTO 0.05 K/mm3 (0.00-0.23); BASOPHILS PERCENT AUTO 1 % (0-2); EOSINOPHILS PERCENT AUTO 1 % (0-6); Hematocrit 45.9 % (37.0-53.0); Hemoglobin 15.7 g/dL (13.5-17.5); IMMATURE GRAN ABSOLUTE AUTO 0.02 K/mm3 (0.00-0.10); IMMATURE GRAN PERCENT AUTO 0 % (0-1); LYMPHOCYTES ABSOLUTE AUTO 1.39 K/mm3 (0.84-5.20); LYMPHOCYTES PERCENT AUTO 18 % (21-46); MONOCYTES ABSOLUTE AUTO 0.62 K/mm3 (0.16-1.47); MONOCYTES PERCENT AUTO 8 % (4-13); Mean Corpuscular HGB 30.5 pg (26.0-34.0); Mean Corpuscular HGB Conc 34.2 g/dL (31.5-36.5); Mean Corpuscular Volume 89 fL (80-100); Mean Platelet Volume 10.3 fL (9.1-12.4); NEUTROPHILS ABSOLUTE AUTO 5.56 K/mm3 (1.96-9.15); NEUTROPHILS PERCENT AUTO 72 % (41-73); Platelet Count 160 K/mm3 (150-400); RDW Coefficient Variation 13.7 % (11.7-14.2); RDW Standard Deviation 44.9 fL (35.1-46.3); Red Blood Cell Count 5.14 M/mm3 (4.30-5.90); White Blood Cell Count 7.74 K/mm3 (4.00-11.30)
[2018-11-21 09:29] LABS: Albumin, Blood 3.3 g/dL (3.4-5.0); Albumin/Globulin Ratio 0.9 (0.8-1.8); Bilirubin, Total 0.9 mg/dL (0.1-1.0); Creatinine, Blood 2.65 mg/dL (0.60-1.20); Globulin, Blood 3.6 g/dL (2.2-4.0); Potassium, Blood 4.6 mmol/L (3.5-5.5); Total Protein, Blood 6.9 g/dL (6.4-8.2)
== END | disposition home or self-care (01) ==
LOC: LAB EV 09:09 → LAB SHORT 09:09
PROVIDERS: General Practice
DX: R11.10 Vomiting, unspecified (principal)
CPT/HCPCS: 80053; 85025

== ENCOUNTER 2019-03-20 16:05 | Emergency (ER) | payer MEDICARE, OTHER ==
[~2019-03-20] VITALS: Ht 157.5 cm; Wt 81.7 kg
[~2019-03-20 16:05] MED LIST changes: +CEPH500 PO; +GLIP5ER; +Pyridium100 MG PO; +Zantac150 MG PO
[2019-03-20 17:02] LABS: BASOPHILS ABSOLUTE AUTO 0.04 K/mm3 (0.00-0.23); BASOPHILS PERCENT AUTO 1 % (0-2); EOSINOPHILS ABSOLUTE AUTO 0.32 K/mm3 (0.00-0.68); EOSINOPHILS PERCENT AUTO 6 % (0-6); Hematocrit 36.3 % (37.0-53.0); Hemoglobin 12.3 g/dL (13.5-17.5); IMMATURE GRAN ABSOLUTE AUTO 0.02 K/mm3 (0.00-0.10); IMMATURE GRAN PERCENT AUTO 0 % (0-1); LYMPHOCYTES ABSOLUTE AUTO 1.38 K/mm3 (0.84-5.20); LYMPHOCYTES PERCENT AUTO 25 % (21-46); MONOCYTES ABSOLUTE AUTO 0.55 K/mm3 (0.16-1.47); MONOCYTES PERCENT AUTO 10 % (4-13); Mean Corpuscular HGB 31.6 pg (26.0-34.0); Mean Corpuscular HGB Conc 33.9 g/dL (31.5-36.5); Mean Corpuscular Volume 93 fL (80-100); Mean Platelet Volume 10.4 fL (9.1-12.4); NEUTROPHILS ABSOLUTE AUTO 3.13 K/mm3 (1.96-9.15); NEUTROPHILS PERCENT AUTO 58 % (41-73); Platelet Count 146 K/mm3 (150-400); RDW Standard Deviation 44.8 fL (35.1-46.3); Red Blood Cell Count 3.89 M/mm3 (4.30-5.90); White Blood Cell Count 5.44 K/mm3 (4.00-11.30)
[2019-03-20 17:46] LABS: Alanine Aminotransfer (ALT/SGP 42 U/L (12-78); Albumin, Blood 3.7 g/dL (3.4-5.0); Albumin/Globulin Ratio 1.2 (0.8-1.8); Alk Phos 105 U/L (50-136); Anion Gap 6 mmol/L (6-16); Aspartate Aminotrans (AST/SGOT 27 U/L (12-37); Bilirubin, Total 0.4 mg/dL (0.1-1.0); Blood Urea Nitrogen 26 mg/dL (8-24); Bun/Creatinine Ratio 22.8 (12.0-20.0); CO2, Blood 26 mmol/L (21-32); Calcium, Blood 8.5 mg/dL (8.5-10.1); Chloride, Blood 108 mmol/L (98-108); Creatinine, Blood 1.14 mg/dL (0.60-1.20); Globulin, Blood 3.2 g/dL (2.2-4.0); Glomerular Filtration Rate >60 (60-); Glucose, Blood 135 mg/dL (70-99); Potassium, Blood 4.4 mmol/L (3.5-5.5); Sodium, Blood 140 mmol/L (136-145); Total Protein, Blood 6.9 g/dL (6.4-8.2); Troponin I <0.015 ng/mL (0.000-0.040)
[2019-03-20] MEDS ORDERED: Lasix20 MG PO (19:26)
== END 2019-03-20 19:20 | disposition home or self-care (01) ==
LOC: ER 16:05
PROVIDERS: Physician Assistant
DX: R60.0 Localized edema (principal); E11.9 Type 2 diabetes mellitus without complications; Z79.899 Other long term (current) drug therapy; Z79.84 Long term (current) use of oral hypoglycemic drugs
CPT/HCPCS: 36415; 71046; 80053; 83880; 84484; 85025; 93005; 93010; 99284-25

== ENCOUNTER 2020-07-04 11:47 | Day surgery (SDC) | payer OTHER ==
[~2020-07-04] VITALS: Ht 162.6 cm; Wt 82.1 kg
[~2020-07-04 11:47] MED LIST changes: +GABA300 PO; +GLUCOPHAGE1000 M1 PO; +Glucotrol5 MG; +Keflex500 MG PO; +LISI20; +Lasix20 MG PO; +NAPR500EC; +OMEP20ER; +OMEP20ER PO; +OXYB5 PO; +TRAM50 PO
== END 2020-07-04 15:21 | disposition home or self-care (01) ==
LOC: ORSCSDS 11:47
DX: R19.5 Other fecal abnormalities (principal); D12.5 Benign neoplasm of sigmoid colon; D12.3 Benign neoplasm of transverse colon; D12.4 Benign neoplasm of descending colon; K63.5 Polyp of colon; K57.30 Diverticulosis of large intestine without perforation or abscess without bleeding; K64.8 Other hemorrhoids; K60.2 Anal fissure, unspecified; E11.40 Type 2 diabetes mellitus with diabetic neuropathy, unspecified; E11.51 Type 2 diabetes mellitus with diabetic peripheral angiopathy without gangrene; I10 Essential (primary) hypertension; Z79.84 Long term (current) use of oral hypoglycemic drugs; Z79.82 Long term (current) use of aspirin; Z79.899 Other long term (current) drug therapy
CPT/HCPCS: 82947; 88305; J2704; J7120

== ENCOUNTER → 2021-03-29 | Outpatient (CLI) | payer OTHER ==
[2021-03-29 14:23] LABS: Campylobacter Sp Not Detected (NOT DETECT)
[2021-03-29 14:24] LABS: Adenovirus F 40/41 Not Detected (NOT DETECT); Astrovirus Not Detected (NOT DETECT); Cryptosporidium Not Detected (NOT DETECT); Cyclospora Cayetanensis Not Detected (NOT DETECT); E. Coli O157 Not Detected (NOT DETECT); Entamoeba Histolytica Not Detected (NOT DETECT); Enteroaggregative E. coli-EAEC Not Detected (NOT DETECT); Enteropathogenic E. coli-EPEC Detected (NOT DETECT); Enterotoxigenic E. coli-ETEC Not Detected (NOT DETECT); Giardia Lamblia Not Detected (NOT DETECT); Norovirus GI/GII Not Detected (NOT DETECT); Plesiomonas Shigelloides Not Detected (NOT DETECT); Rotavirus A Not Detected (NOT DETECT); Salmonella Sp Not Detected (NOT DETECT); Sapovirus Not Detected (NOT DETECT); Shiga Toxin-prod E. coli-STEC Not Detected (NOT DETECT); Shigella/Enteroin E. coli-EIEC Not Detected (NOT DETECT); Vibrio Cholerae Not Detected (NOT DETECT); Vibrio Sp Not Detected (NOT DETECT); Yersinia Enterocolitica Not Detected (NOT DETECT)
== END | disposition home or self-care (01) ==
LOC: LAB SHORT 08:00
PROVIDERS: Family Medicine
DX: R19.7 Diarrhea, unspecified (principal)
CPT/HCPCS: 0097U; 83631; 87177; 87209

== ENCOUNTER 2021-11-02 09:35 | Emergency (ER) | payer OTHER ==
[~2021-11-02] VITALS: Ht 157.5 cm; Wt 81.7 kg
== END 2021-11-02 11:20 | disposition home or self-care (01) ==
LOC: ER 09:35
DX: L03.011 Cellulitis of right finger (principal); E11.9 Type 2 diabetes mellitus without complications; Z79.84 Long term (current) use of oral hypoglycemic drugs; Z79.82 Long term (current) use of aspirin; Z79.899 Other long term (current) drug therapy; Z87.891 Personal history of nicotine dependence
CPT/HCPCS: 99283

== ENCOUNTER 2022-08-07 10:52 | Emergency (ER) | payer OTHER ==
[~2022-08-07] VITALS: Ht 157.5 cm; Wt 79.4 kg
[2022-08-07] MEDS ORDERED: Naprosyn500 MG PO (12:31)
[2022-08-07] MEDS ORDERED: Cyclobenzaprine5 MG PO (12:31)
== END 2022-08-07 12:50 | disposition home or self-care (01) ==
LOC: ER 10:52
DX: M54.50 Low back pain, unspecified (principal); G89.29 Other chronic pain; E11.40 Type 2 diabetes mellitus with diabetic neuropathy, unspecified; I10 Essential (primary) hypertension; Z87.891 Personal history of nicotine dependence; Z79.899 Other long term (current) drug therapy; Z79.82 Long term (current) use of aspirin
CPT/HCPCS: 72100; J1885